=== PATIENT | male | born 1995 | race African-American/Black ===

== ENCOUNTER 2016-05-03 15:05 | Emergency (ER) | payer BC ==
[2016-05-03 15:26] LABS: PROTHROMBIN TIME 11.2 SECONDS (9.7-12.8)
[2016-05-03 16:05] VITALS: TEMP 97.1
[2016-05-03 16:43] VITALS: BP 153/94; PULSE 93
== END 2016-05-03 16:12 | disposition short-term general hospital (02) ==
LOC: COL.ER 15:05 → EDBD 15:06 → COL.ER 15:06
PROVIDERS: Emergency Medicine
DX: S06.5X0A Traumatic subdural hemorrhage without loss of consciousness, initial encounter (principal); S02.19XA Other fracture of base of skull, initial encounter for closed fracture; S02.2XXA Fracture of nasal bones, initial encounter for closed fracture; S02.0XXA Fracture of vault of skull, initial encounter for closed fracture; S27.321A Contusion of lung, unilateral, initial encounter; K92.0 Hematemesis; V00.131A Fall from skateboard, initial encounter; Y93.51 Activity, roller skating (inline) and skateboarding; Y92.830 Public park as the place of occurrence of the external cause; R40.2352 Coma scale, best motor response, localizes pain, at arrival to emergency department; R40.2142 Coma scale, eyes open, spontaneous, at arrival to emergency department; R40.2222 Coma scale, best verbal response, incomprehensible words, at arrival to emergency department; Z23 Encounter for immunization
CPT/HCPCS: J0690; J1953; J2250; J2405; J3010; J7030; Q9967

== ENCOUNTER 2016-06-14 16:04 | Emergency (ER) | payer BC ==
[~2016-06-14] VITALS: Ht 170.2 cm; Wt 67.7 kg
[2016-06-14 16:12] VITALS: BP 150/71; TEMP 98.7
[2016-06-14] MEDS ORDERED: TOBRADEX EYE DRO5 ML OP (16:44)
[2016-06-14 17:05] VITALS: PULSE 82
== END 2016-06-14 17:06 | disposition home or self-care (01) ==
LOC: COL.ER 16:04
DX: H10.31 Unspecified acute conjunctivitis, right eye (principal)

== ENCOUNTER 2021-08-08 17:45 | Emergency (ER) | payer SELFPAY ==
[~2021-08-08] VITALS: Ht 170.2 cm; Wt 87.3 kg
[~2021-08-08 17:45] MED LIST: TOBRADEX EYE DRO5 ML OP
[2021-08-08 18:30] LABS: STREP SCREEN NEGATIVE
[2021-08-08 19:29] VITALS: BP 119/71; PULSE 103; TEMP 98.1
== END 2021-08-08 19:29 | disposition home or self-care (01) ==
LOC: COL.ER 17:45
PROVIDERS: Personal Emergency Response Attendant
DX: J03.90 Acute tonsillitis, unspecified (principal); F17.210 Nicotine dependence, cigarettes, uncomplicated; Z28.311 Partially vaccinated for COVID-19
CPT/HCPCS: J0561; J8540